=== PATIENT | female | born 1975 | race Two or more races ===

== ENCOUNTER 2021-04-25 03:41 | Emergency (ER) | payer OTHER ==
[~2021-04-25] VITALS: Ht 157.5 cm; Wt 127.9 kg
[2021-04-25] MEDS ORDERED: BACTRIM DS TAB1 EACH PO (06:08)
== END 2021-04-25 07:24 | disposition home or self-care (01) ==
LOC: ER 03:41
DX: N39.0 Urinary tract infection, site not specified (principal); R30.0 Dysuria; R53.1 Weakness

== ENCOUNTER 2021-10-31 08:31 | Emergency (ER) | payer OTHER ==
[~2021-10-31] VITALS: Ht 157.5 cm; Wt 129.7 kg
[~2021-10-31 08:31] MED LIST: BACTRIM DS TAB1 EACH PO
== END 2021-10-31 09:20 | disposition home or self-care (01) ==
LOC: ER 08:31
DX: M54.30 Sciatica, unspecified side (principal)

== ENCOUNTER 2022-01-27 12:49 | Emergency (ER) | payer OTHER ==
[~2022-01-27] VITALS: Ht 157.5 cm; Wt 129.7 kg
== END 2022-01-27 14:36 | disposition home or self-care (01) ==
LOC: ER 12:49
DX: M79.605 Pain in left leg (principal)

== ENCOUNTER 2022-01-28 06:39 | Emergency (ER) | payer OTHER ==
[~2022-01-28] VITALS: Ht 215.9 cm; Wt 129.7 kg
[2022-01-29] MEDS ORDERED: ZESTRIL2.5 MG PO (21:15)
[2022-01-29] MEDS ORDERED: ATORVASTATIN CA10 MG PO (21:15)
== END 2022-01-28 14:24 | disposition home or self-care (01) ==
LOC: ER 06:39
DX: L03.116 Cellulitis of left lower limb (principal); I80.292 Phlebitis and thrombophlebitis of other deep vessels of left lower extremity

== ENCOUNTER 2022-01-29 20:59 | Inpatient (IN) | payer OTHER ==
[~2022-01-29] VITALS: Ht 157.5 cm; Wt 129.7 kg
[2022-01-29] MEDS ORDERED: ATORVASTATIN CA10 MG PO (21:15)
[2022-01-29] MEDS ORDERED: ZESTRIL2.5 MG PO (21:15)
--- NOTE | 2022-01-29 21:15 | NUR ---
SE RECIBE PTE FEMENINA ALERTA Y ORIENTADA EN LAS DIANA ESFERAS EN AMBULANCIA REFIERE CELULLITIS EN PIERNA L+ DESDE HACE CUATRO DAUGHERTY. PTE INDICA RECIBIO TRATAMIENTO DIEGO SINTOMAS RODRIGUEZ EMPEORADO. SE OBSERVA AREA CON ERITEMA Y EDEMA. SE UBICA EN AREA DE OBSERVACION PARA EVALUACION MEDICA.
--- NOTE | 2022-01-29 21:34 | NUR ---
PTE FEMENINA ALERTA Y ORIENTADA EN L[place] DIANA ESFERAS ES EVALUADA POR NOE SE ORIENTA PTE SOBRE ORDENES DE [place] REFIERE COMPRENDER. SE COLECTA MUESTRA DE LABORATORIO, BAJO MEDIDAS ASEPTICAS. SE ADMINISTRA MEDICAMENTO, BAJO MEDIDAS ASEPTICAS. PTE MANEJADA POR CASANDRA PORTILLO.
== END 2022-02-01 23:34 | disposition home or self-care (01) | DRG 603 ==
LOC: ER 20:59 → SURH 22:51
PROVIDERS: Surgery; ADMIT Internal Medicine; ATTEND Internal Medicine
PROC: 0H9LXZZ Drainage of Left Lower Leg Skin, External Approach (ICD-10-PCS; principal; 2022-01-31 13:30)
DX: L02.416 Cutaneous abscess of left lower limb (principal); Z68.43 Body mass index [BMI] 50.0-59.9, adult; L03.116 Cellulitis of left lower limb; L97.529 Non-pressure chronic ulcer of other part of left foot with unspecified severity; D72.828 Other elevated white blood cell count; Z20.822 Contact with and (suspected) exposure to COVID-19; E66.01 Morbid (severe) obesity due to excess calories

== ENCOUNTER → 2023-04-13 | Emergency (ER) | payer OTHER ==
[~2023-04-13] VITALS: Ht 157.5 cm; Wt 127.5 kg
[~2023-04-13] MED LIST changes: +ATORVASTATIN CA10 MG PO; +ZESTRIL2.5 MG PO
== END | disposition home or self-care (01) ==
LOC: ER 06:28
DX: M54.32 Sciatica, left side (principal)